=== PATIENT | female | born 1985 | race Caucasian/White ===

== ENCOUNTER 2016-12-12 20:54 | Observation (INO) | payer SELFPAY ==
--- NOTE | ~2016-12-12 | HP ---
History And Physical [address] [id number] [facility] [place]. [address] NAME: MARIO BLANCO : 81 STATUS : ADM Katharina PAT#: [id number] AGE: 31 ADM/REG DATE : 12/12/16 MR#: [id number] REPORT SERV DATE: 12/13/16 DICTATED BY: TRA DENNEY DATE: 12/13/16 REPORT STATUS : Draft TRANSCRIBED BY: MODL DATE: 12/13/16 DATE OF ADMISSION: 12/12/2016 PHLEBOTOMIST: None. CHIEF COMPLAINT: Chest pain with radiation to upper/middle back. HISTORY OF PRESENT ILLNESS: This is a pleasant, 31-year-old, morbidly obese white female with a history of left-sided pulmonary emboli and factor V Leiden diagnosed approximately four to five years ago and on aspirin daily per recommendations at that time, per the patient's report. She does also have diabetes mellitus type 2, hypertension, hyperlipidemia, former smoking with current occasional electronic cigarette usage. She reports she developed a cough and went to [facility] last Wednesday where she was diagnosed with acute bronchitis and started on albuterol inhaler. She was unable to fill that prescription as she is in between insurance for the next several weeks as she has recently started a new job. She reports she continued with the cough but it was nonproductive but then developed atypical chest pain radiating to the back that lasted for about three days and therefore, she presented to our emergency department for further evaluation. Today, in the emergency room, they did negative CTA of the chest, which ruled out pulmonary emboli, dissection, and aneurysm along with pneumonia. They also did a chest x-ray, which ruled out any acute processes. She had no hypoxia and no productive cough or fever. She did report that she finds it hard to take a deep breath because of the pain. She does also have back pain. Presently, her back is hurting seven to eight on the numeric pain scale and she has mild chest pressure. She denies again any fever. There is no exertional component to her symptoms. She denies any diaphoresis, nausea, vomiting, or any other symptoms at this time. She had no syncope as well. Currently, she does not have any dyspnea. PAST MEDICAL HISTORY: 1. Factor V Leiden. 2. Left-sided pulmonary emboli diagnosed at [facility] approximately four to five years ago, for which she was recommended to take aspirin 81 mg daily. 3. Hypertension. 4. Hyperlipidemia. 5. Diabetes mellitus type 2. 6. Tobacco use. 7. History of recurrent bronchitis with the patient denying any history of COPD or asthma. 8. PCOS. 9. Anxiety. 10.Depression. 11.GERD. PAST SURGICAL HISTORY: 1. Left ankle ORIF. 2. Schwertner teeth removal. 3. D and C with hysteroscopy and laparoscopy 01/2011. History And Physical [address] [address] NAME: MARIO BLANCO : 81 STATUS : ADM Katharina PAT#: [id number] AGE: 31 ADM/REG DATE : 12/12/16 MR#: [id number] REPORT SERV DATE: 12/13/16 DICTATED BY: TRA DENNEY DATE: 12/13/16 REPORT STATUS : Draft TRANSCRIBED BY: BOGDAN DATE: 12/13/16 SOCIAL HISTORY: She is and lives with her mother. She has no children. 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 Until she became sick with bronchitis approximately a week ago, she exercised on the elliptical at her gym 30 minutes, approximately three times per week with no symptoms. She is using E-cigarettes approximately one puff weekly, and she reports she has been slowly weaning off E-cigarettes. Previously, she smoked tobacco cigarettes one pack per day x20 years, quitting with her pulmonary emboli four to five years ago. She denies any illicit drug use. She some weeks will drink one time per week approximately two to three drinks at a time. Other weeks, she does not drink anything. FAMILY HISTORY: Maternal grandfather with myocardial infarction at the age of 45 and he was told it was stress induced; paternal grandfather with myocardial infarction at an "old age." REVIEW OF SYSTEMS: The patient denies ever having a cardiac evaluation. She denies any fever, myalgia, or flu- like symptoms. Again, there is no exertional component to chest pain. As above per HPI, all other systems reviewed and negative. ALLERGIES: NO KNOWN DRUG ALLERGIES. MEDICATIONS: Home medication list is reviewed and is as follows: 1. Aspirin 81 mg p.o. daily. 2. Atarax 50 mg p.o. twice per day as needed. 3. Lisinopril 20 mg p.o. daily. 4. Metformin 1000 mg p.o. twice per day. 5. Omeprazole 20 mg one tablet p.o. daily as needed. 6. Simvastatin 40 mg p.o. at bedtime. 7. Aldactone 50 mg p.o. daily. 8. Effexor 75 mg p.o. daily. PHYSICAL EXAMINATION: VITAL SIGNS: Oxygen saturation 97% on 2 L nasal cannula; I turned off oxygen and her O2 saturation remained the same. Weight 118.89 kg with a height of 170.18 cm with a body mass index of 41.4. Temperature 97.5, pulse initially 107, currently 73. Respiratory rate 18, blood pressure currently 115/66 with a range of 94/48 to 141/92. GENERAL: Well developed, well nourished. Obese. In no apparent distress. HEENT: Head normocephalic. No xanthelasma. Sclera clear, anicteric. Moist mucous membranes without pallor. No lymphadenopathy. No deficits noted. NECK: Trachea midline. Supple. No thyromegaly, JVD, or bruits. RESPIRATORY: Unlabored respirations with shallow inspirations. Breath sounds clear in upper and slightly decreased in bilateral lower lobes to anterior and posterior auscultation. No wheezes, rhonchi or crackles. CARDIOVASCULAR: Regular rate and rhythm. No murmur, rub, or gallop appreciated. No chest wall tenderness to palpation. ABDOMEN: Soft, nontender, and nondistended. Obese. Active bowel sounds auscultated x4 quadrants. No organomegaly and no masses. No aortic bruit. EXTREMITIES: DP/PT and radial pulses 2+ bilaterally. No clubbing, cyanosis, or edema. History And Physical [address] [address] NAME: MARIO BLANCO : 81 STATUS : ADM Katharina PAT#: [id number] AGE: 31 ADM/REG DATE : 12/12/16 MR#: [id number] REPORT SERV DATE: 12/13/16 DICTATED BY: TRA DENNEY DATE: 12/13/16 REPORT STATUS : Draft TRANSCRIBED BY: MODL DATE: 12/13/16 SKIN: Warm, dry, intact. No rash. Normal turgor. MUSCULOSKELETAL: Moves all extremities in bed without difficulty. NEURO/PSYCH: Alert and oriented x3 with no acute distress. Affect appropriate to current situation. LABORATORY DATA: 1. BMP: Sodium 134, potassium 4, creatinine 0.9, glucose 115, magnesium 1.6. CBC: White blood cell count was mildly elevated at 12.5, hemoglobin 15.7, hematocrit 45.5, platelets 353. Troponin 0.06, 0.05, 0.04. BNP was 11.8 (normal). 2. CTA of the chest performed in the emergency department last night. No pulmonary emboli. No aneurysm or dissection in the thoracic aorta. Minimal left bibasilar atelectasis. 3. Chest x-ray, PA and lateral, no acute processes. 4. EKGs personally interpreted x2 for sinus tachycardia with no ischemia, 2nd normal sinus rhythm with no ischemia. 5. Telemetry; normal sinus rhythm, with no events. ASSESSMENT/PLAN: 1. Precordial chest pain with atypical features with radiation to the back for over three days after recent diagnosis with bronchitis. Three flat troponin 0.06, 0.05, 0.04 with benign EKGs. Acute coronary syndrome has been ruled out. CTA and chest x-ray revealed no pulmonary emboli. No dissection or aneurysm. Minimal atelectasis only. There is no hypoxia, and no fever. She does have mild leukocytosis but did have steroids at [facility] and again, denies any fever and reports that bronchitis has improved with a mild lingering cough that is nonproductive only. Cardiac risk factors include morbid obesity, hypertension, hyperlipidemia, diabetes mellitus type 2, and family history of myocardial infarction/CVD. I will plan to risk stratify with a cardiac PET scan tomorrow morning given the morbid obesity, this is the best modality. If it is low risk with no ischemia, then RN is to discharge the patient who will follow up with primary care provider. I also treat the pleuritic chest pain with ibuprofen, 1st dose now. I will schedule ibuprofen throughout the day today and then switch to as needed ibuprofen starting tomorrow and until she follows up with primary care provider in one week. 2. Recent acute bronchitis. This appears improved with chest x-ray benign, no hypoxia and no fever. She reports cough is nonproductive and improving at this time. She may have bronchodilator protocol if she so desires and needs it. 3. Follow up with primary care provider. 4. Mildly abnormal troponins. There is no evidence of acute coronary syndrome. We will plan a cardiac PET scan tomorrow. 5. Factor V Leiden with a history of PE. There is no PE on CTA here. The patient reports that she has been instructed postdiagnosis at [facility] to take aspirin 81 mg daily only. I did advise her to follow up with primary care provider to further discuss what to take for factor V Leiden. 6. Diabetes mellitus 2. We will give sliding scale insulin while here in the hospital. May resume metformin on discharge. 7. Morbid obesity. The patient reported interest in DASH diet, and we did discuss that this is a good diet plan for her. She does go to the gym. I have encouraged her to History And Physical [address] [address] NAME: MARIO BLANCO : 81 STATUS : ADM Katharina PAT#: [id number] AGE: 31 ADM/REG DATE : 12/12/16 MR#: [id number] REPORT SERV DATE: 12/13/16 DICTATED BY: TRA DENNEY DATE: 12/13/16 REPORT STATUS : Draft TRANSCRIBED BY: BOGDAN DATE: 12/13/16 continue to exercise and have good dietary changes. 8. Hypertension. We will continue current medications. 9. Hyperlipidemia. Continue current medications. 10.Tobacco use in the form of E-cigarettes after formerly smoking cigarettes. I advised her for complete smoking cessation for cardiovascular health. The patient was also seen by rounding accounts supervisor for chest pain observation unit. TIKI/BOGDAN Tra Denney NP / [id number] CC: Talya Mcclendon, MSN, [employer] [facility]
[2016-12-12 21:33] LABS: BASOPHILS 0.3 %; BASOPHILS ABSOLUTE 0.04 10/3/uL (0.0-0.16); EOSINOPHILS ABSOLUTE 0.37 10/3/uL (0.0-0.53); HEMATOCRIT 45.5 % (36.0-48.0); HEMOGLOBIN 15.7 g/dL (12.0-16.0); IMMATURE GRANULOCYTES 0.7 %; IMMATURE GRANULOCYTES ABSOLUTE 0.09 10/3/uL (0.0-0.11); LYMPHOCYTES 35.1 %; MEAN CORPUS HGB CONC 34.5 g/dL (32.0-36.0); MEAN CORPUSCULAR VOLUME 89.7 fL (80-100); MEAN PLATELET VOLUME 9.5 fL (9.2-13.0); MONOCYTES 7.7 %; MONOCYTES ABSOLUTE 0.97 10/3/uL (0.21-1.20); NEUTROPHILS 53.2 %; NEUTROPHILS ABSOLUTE 6.67 10/3/uL (2.02-8.40); PLATELET COUNT 353 10/3/uL (150-400); RBC DISTRIBUTION WIDTH 13.3 % (12.0-16.0); RED CELL COUNT 5.07 10/6/uL (4.0-5.6)
[2016-12-12 21:36] LABS: MANUAL DIFF NO %; WHITE BLOOD CELLS 12.5 10/3/uL (4.5-10.5)
[2016-12-12 21:41] LABS: PARTIAL THROMBO TIME 25.1 SEC (22.5-37.2)
[2016-12-12 21:42] LABS: PROTIME (NOT ORD) 13.1 SEC (12.0-14.5)
[2016-12-12 21:49] LABS: BUN (BLOOD UREA NITROGEN) 12 MG/DL (6-23); CALCIUM, SERUM 9.6 MG/DL (8.5-10.4); CHEST PAIN PROFILE TAT 0 Hrs 19 Mins; CHLORIDE, SERUM 100 MMOL/L (96-112); CO2 (CARBON DIOXIDE) 26 MMOL/L (24-34); GFR AFRICAN AMERICAN 97 ML/MIN (>=60); GFR NON AFRICAN AMERICAN 84 ML/MIN (>=60); GLUCOSE, SERUM 115 MG/DL (60-99); SODIUM, SERUM 134 MMOL/L (135-148); TROPONIN I 0.06 NG/ML (<0.05)
[2016-12-13] MEDS ORDERED: ZOCOR40 PO (01:43)
[2016-12-13] MEDS ORDERED: PRIN20 PO (01:44)
[2016-12-13] MEDS ORDERED: GLUCOPHAGE1000 MG PO (01:45)
[2016-12-13] MEDS ORDERED: EFFEX75 PO (01:46)
[2016-12-13] MEDS ORDERED: SPIRO50 PO (01:47)
[2016-12-13] MEDS ORDERED: ASAB PO (01:47)
[2016-12-13] MEDS ORDERED: PRILO (01:48)
[2016-12-13] MEDS ORDERED: ATARAX50B PO (01:49)
[2016-12-14 03:47] LABS: BASOPHILS 0.2 %; BASOPHILS ABSOLUTE 0.02 10/3/uL (0.0-0.16); EOSINOPHILS 4.8 %; EOSINOPHILS ABSOLUTE 0.43 10/3/uL (0.0-0.53); HEMATOCRIT 42.3 % (36.0-48.0); HEMOGLOBIN 13.9 g/dL (12.0-16.0); IMMATURE GRANULOCYTES 0.6 %; IMMATURE GRANULOCYTES ABSOLUTE 0.05 10/3/uL (0.0-0.11); LYMPHOCYTES 35.5 %; LYMPHOCYTES ABSOLUTE 3.21 10/3/uL (0.67-4.30); MEAN CORPUS HGB CONC 32.9 g/dL (32.0-36.0); MEAN CORPUSCULAR HEMOGLOB 30.3 pg (26.0-34.0); MEAN CORPUSCULAR VOLUME 92.2 fL (80-100); MEAN PLATELET VOLUME 9.5 fL (9.2-13.0); MONOCYTES 7.4 %; MONOCYTES ABSOLUTE 0.67 10/3/uL (0.21-1.20); NEUTROPHILS 51.5 %; NEUTROPHILS ABSOLUTE 4.67 10/3/uL (2.02-8.40); PLATELET COUNT 297 10/3/uL (150-400); RBC DISTRIBUTION WIDTH 13.5 % (12.0-16.0); RED CELL COUNT 4.59 10/6/uL (4.0-5.6); WHITE BLOOD CELLS 9.1 10/3/uL (4.5-10.5)
[2016-12-14 03:48] LABS: MANUAL DIFF NO %
[2016-12-14 04:07] LABS: BUN (BLOOD UREA NITROGEN) 14 MG/DL (6-23); CALCIUM, SERUM 8.7 MG/DL (8.5-10.4); CHLORIDE, SERUM 103 MMOL/L (96-112); CO2 (CARBON DIOXIDE) 27 MMOL/L (24-34); GFR AFRICAN AMERICAN 132 ML/MIN (>=60); GFR NON AFRICAN AMERICAN 114 ML/MIN (>=60); GLUCOSE, SERUM 109 MG/DL (60-99); POTASSIUM, SERUM 4.6 MMOL/L (3.5-5.3); SODIUM, SERUM 138 MMOL/L (135-148)
== END 2016-12-14 13:55 | disposition home or self-care (01) ==
LOC: ER 20:54 → CDU1 23:59
PROVIDERS: Emergency Medicine; Nurse Practitioner Family
DX: R07.2 Precordial pain (principal); E66.01 Morbid (severe) obesity due to excess calories; E11.9 Type 2 diabetes mellitus without complications; I10 Essential (primary) hypertension; E78.5 Hyperlipidemia, unspecified; E78.00 Pure hypercholesterolemia, unspecified; J20.9 Acute bronchitis, unspecified; F41.9 Anxiety disorder, unspecified; F32.9 Major depressive disorder, single episode, unspecified; K21.9 Gastro-esophageal reflux disease without esophagitis; Z98.890 Other specified postprocedural states; F17.210 Nicotine dependence, cigarettes, uncomplicated; Z79.82 Long term (current) use of aspirin; Z87.891 Personal history of nicotine dependence; Z86.711 Personal history of pulmonary embolism; Z79.899 Other long term (current) drug therapy
CPT/HCPCS: 71020; 71275; 78492; 80048; 82962; 83735; 83880; 84484; 84703; 85025; 85610; 85730; 93005; 93017; 96372; 96374; 96375; 99285; A9270-GY; A9555; C9113; G0378; J2405; J2785; J3475; Q9967